=== PATIENT | female | born 1955 | race Hispanic/Latino ===

== ENCOUNTER 2018-02-24 13:03 | Emergency (ER) | payer OTHER ==
[~2018-02-24] VITALS: Ht 167.6 cm; Wt 90.7 kg
[~2018-02-24 13:03] MED LIST: KEFLEX500 MG PO; METAMUCIL PACK1 EACH PO; NORCO 7.5-3251 EACH PO; PANTOPRAZOLE SO40 MG PO
--- OUTSIDE RECORDS SUMMARY | 2018-02-24 13:06 | XMS REPORT ---
Author Author [facility] Address Unknown Phone Unavailable Care Team Providers Care [employer] Name Role Phone Brock KEARNS Unavailable Unavailable Richard RIGGS Unavailable Unavailable Problems This patient has no known problems. Allergies, Adverse Reactions, Alerts This patient has no known allergies or adverse reactions. Medications This patient has no known medications. Results Test Description Test Time Test Comments Text Results Atomic Results Result Comments CT BRAIN WO [facility] [address] [place] [address] Patient Name: MAYRA BLAKELY MR #: [id number] : 1955 Age/Sex: 61/F Req #: [id number] Adm Physician: Ordered by: MORELIA ESTEBAN Report #: [id number] Location: ER Room/Bed: Procedure: [id number] CT/CT BRAIN WO Exam Date: 02/13/17 Exam Time: 2206 REPORT STATUS: Signed History: Fall Comparison studies: None Technique: Axial images were obtained from the skull base to the vertex. Coronal and sagittal reconstructions obtained from the axial data. Findings: Scalp/skull: No abnormalities. No fractures, blastic or lytic lesions. Extra-axial spaces: No masses. No fluid collections. Brain sulci: Appropriate for age. Ventricles: Normal in size and configuration. No hydrocephalus. Parenchyma: Subtle hypodensities in the supratentorial white matter are small vessel ischemic changes. No masses, hemorrhage, acute or chronic cortical vascular insults. Sellar/suprasellar region: No abnormalities Craniocervical junction: Patent foramen magnum. No Chiari one malformation. IMPRESSION: 1. No acute abnormalities. 2. Mild supratentorial white matter small vessel ischemic changes Signed by: Dr. Hakan Barnes M.D. on 02/13/2017 10:35 PM Dictated By: HAKAN BARNES MD, MD 34 Transcribed By: JEFERSON on 02/13/172234 COPY TO: MORELIA ESTEBAN CT CERVICAL SPINE WO [place] [address] Patient Name: MAYRA BLAKELY MR #: [id number] : 1955 Age/Sex: 61/F Req #: [id number] Adm Physician: Ordered by: MORELIA ESTEBAN Report #: [id number] Location: ER Room/Bed: Procedure: [id number] CT/CT CERVICAL SPINE WO Exam Date: 02/13/17 Exam Time: 2206 REPORT STATUS: Signed History: Fall Comparison studies: None Technique: Axial images were obtained through the cervical region.. Coronal and sagittal images reconstructed from the axial data.. Intravenous contrast: None Findings: Airway: Patent. Fractures: None. Soft tissues: No gross abnormalities. Atlantoaxial articulation: Intact. Alignment: Thickening of the usual lordosis is probably positional..No scoliosis. Cervicomedullary junction: No abnormalities. The foramen magnum is patent. Vertebrae: No infection or neoplasm. Degenerative changes: Mild at the atlantoaxial articulation Focal anterior osteophyte at C5-6. Mild right foraminal stenosis due to moderate right facet arthrosis. Right facet arthrosis at C7-T1 but patent foramina. IMPRESSION: 1. No acute abnormalities. 2. Cannot adequately evaluate for ligament, spinal cord and or vascular abnormalities. 3. Degenerative changes as described Signed by: Dr. Hakan Barnes M.D. on 02/13/2017 10:37 PM Dictated By: HAKAN KOCH MD, MD 36 Transcribed By: JEFERSON on 02/13/172236 COPY TO: MORELIA ESTEBAN FOREARM RIGHT 2 VIEW [place] [address] Patient Name: MAYRA BLAKELY MR #: [id number] : 1955 Age/Sex: 61/F Req #: [id number] Adm Physician: Ordered by: LUCIUS KEARNS MD Report #: [id number] Location: ER Room/Bed: Procedure: [id number] DX/FOREARM RIGHT 2 VIEW Exam Date: 02/13/17 Exam Time: 2224 REPORT STATUS: Signed EXAM: WRIST COMPLETE RIGHT, HAND 3+ VIEWS RIGHT, FOREARM RIGHT 2 VIEW DATE: 02/13/2017 9:57 PM Time stamp on exam: 2153 hours INDICATION: Fall off ladder, right wrist pain COMPARISON: None FINDINGS: BONES: Acute, comminuted, intra-articular fracture of the distal radius. Acute nondisplaced fracture of the ulnar styloid process. There is a 6 mm ossification inferior to the triquetrum and pisiform. JOINTS: No malalignment. SOFT TISSUES: Soft tissue swelling of the wrist IMPRESSION: Acute, comminuted, mildly displaced intra-articular fracture of the distal radius. Acute nondisplaced fracture of the ulnar styloid process. There is a 6 mm ossification inferior to the triquetrum and pisiform that could represent an avulsion fracture of unknown donor site. Signed by: Dr. Jena Sotomayor M.D. on 02/13/2017 10:52 PM Dictated By: JENA SOTOMAYOR MD 51 Transcribed By: JEFERSON on 02/13/172251 COPY TO: LUCIUS KEARNS MD HAND 3+ VIEWS RIGHT [place] [address] Patient Name: MAYRA BLAKELY MR #: [id number] : 1955 Age/Sex: 61/F Req #: [id number] Adm Physician: Ordered by: LUCIUS KEARNS MD Report #: [id number] Location: ER Room/Bed: Procedure: [id number] DX/HAND 3+ VIEWS RIGHT Exam Date: 02/13/17 Exam Time: 2224 REPORT STATUS: Signed EXAM: WRIST COMPLETE RIGHT, HAND 3+ VIEWS RIGHT, FOREARM RIGHT 2 VIEW DATE: 02/13/2017 9:57 PM Time stamp on exam: 2153 hours INDICATION: Fall off ladder, right wrist pain COMPARISON: None FINDINGS: BONES: Acute, comminuted, intra-articular fracture of the distal radius. Acute nondisplaced fracture of the ulnar styloid process. There is a 6 mm ossification inferior to the triquetrum and pisiform. JOINTS: No malalignment. SOFT TISSUES: Soft tissue swelling of the wrist IMPRESSION: Acute, comminuted, mildly displaced intra-articular fracture of the distal radius. Acute nondisplaced fracture of the ulnar styloid process. There is a 6 mm ossification inferior to the triquetrum and pisiform that could represent an avulsion fracture of unknown donor site. Signed by: Dr. Jena Sotomayor M.D. on 02/13/2017 10:52 PM Dictated By: JENA SOTOMAYOR MD 51 Transcribed By: JEFERSON on 02/13/172251 COPY TO: LUCIUS KEARNS MD WRIST COMPLETE RIGHT [place] [address] Patient Name: MAYRA BLAKELY MR #: [id number] : 1955 Age/Sex: 61/F Req #: [id number] Adm Physician: Ordered by: LUCIUS KEARNS MD Report #: [id number] Location: ER Room/Bed: Procedure: [id number] DX/WRIST COMPLETE RIGHT Exam Date: 02/13/17 Exam Time: 5 REPORT STATUS: Signed EXAM: WRIST COMPLETE RIGHT, HAND 3+ VIEWS RIGHT, FOREARM RIGHT 2 VIEW DATE: 02/13/2017 9:57 PM Time stamp on exam: 2153 hours INDICATION: Fall off ladder, right wrist pain COMPARISON: None FINDINGS: BONES: Acute, comminuted, intra-articular fracture of the distal radius. Acute nondisplaced fracture of the ulnar styloid process. There is a 6 mm ossification inferior to the triquetrum and pisiform. JOINTS: No malalignment. SOFT TISSUES: Soft tissue swelling of the wrist IMPRESSION: Acute, comminuted, mildly displaced intra-articular fracture of the distal radius. Acute nondisplaced fracture of the ulnar styloid process. There is a 6 mm ossification inferior to the triquetrum and pisiform that could represent an avulsion fracture of unknown donor site. Signed by: Dr. Jena Sotomayor M.D. on 02/13/2017 10:52 PM Dictated By: JENA SOTOMAYOR MD 51 Transcribed By: JEFERSON on 02/13/172251 COPY TO: LUCIUS KEARNS MD CT ABDOMEN W [place] [address] Patient Name: MAYRA BLAKELY MR #: [id number] : 1955 Age/Sex: 61/F Req #: [id number] Adm Physician: Ordered by: ZEFERINO RIGGS MD Report #: [id number] Location: CT Room/Bed: Procedure: [id number] CT/CT ABDOMEN W Exam Date: 01/01/17 Exam Time: 1410 REPORT STATUS: Signed PROCEDURE: CT ABDOMEN W COMPARISON: [facility], CT, CT ABDOMEN/PELVIS W, 11/13/2015, 15:54. INDICATIONS: Stromal tumors TECHNIQUE: Routine protocol Volumetric CT abdomen and pelvis after administration of 100 mL Isovue 370 intravenous contrast and 900 mL oral water. Multiplanar reformatted images. DLP: 511.19 FINDINGS: Clear lung bases. No pleural effusions. Normal heart size. Liver: Normal Gallbladder: Cholecystectomy Pancreas: Normal Spleen: Normal Adrenal glands: Normal Kidneys: Normal Bowel: 2.3 x 2.2 cm broad-based appearing mass at the gastroesophageal junction (image 17, series 2 and image 55, series 301. The stomach, duodenum and imaged small large bowel are otherwise normal. Normal appendix. Peritoneum: Normal Vasculature: 1 cm calcified splenic artery aneurysm (image 21, series 2). Mild infrarenal aortic atherosclerosis. Lymph nodes: Normal Skeleton: Intact. Soft tissues: Midline incisional scar. Otherwise, normal. CONCLUSION: 1. 2.3 cm broad-based mass at the gastroesophageal junction. This is at the same location as the tumor seen on CT from October 2015. Findings are concerning for recurrent or residual tumor. Consider direct visualization. 2. 1 cm calcified splenic artery aneurysm. Based on size criteria consider followup imaging in 1 to 2 years. Dictated by: Cathleen Yee M.D. on 01/01/2017 at 14:58 Electronically approved by: Cathleen Yee M.D. on 01/01/2017 at 14:58 Dictated By: CATHLEEN YEE MD 1848 Transcribed By: PAYAL on 01/01/17 1458 COPY TO: ZEFERINO RIGGS MD
[2018-02-24] MEDS ORDERED: ASPIRIN 81 MG CHEW TAB PO ONE (13:45)
[2018-02-24 14:10] LABS: BASOPHILS # (AUTO) 0.1 (0.0-0.1); BASOPHILS % 1.1 % (0.0-1.0); EOSINOPHILS # (AUTO) 0.1 (0.0-0.4); HEMATOCRIT 39.5 % (34.2-44.1); HEMOGLOBIN 13.1 g/dL (12.0-16.0); LYMPHOCYTES # (AUTO) 1.9 (1.0-3.2); LYMPHOCYTES % 34.6 % (18.0-39.1); MEAN CORPUSCULAR HEMOGLOBIN 28.6 pg (28-32); MEAN CORPUSCULAR HGB CONC 33.2 g/dL (31-35); MEAN CORPUSCULAR VOLUME 86.2 fL (81-99); MONOCYTES # (AUTO) 0.4 (0.2-0.8); MONOCYTES % 7.3 % (4.4-11.3); NEUTROPHILS # (AUTO) 3.1 (2.1-6.9); NEUTROPHILS % 54.3 % (38.7-80.0); PLATELET COUNT 286 x10e3/uL (140-360); RED BLOOD COUNT 4.58 x10e6/uL (3.6-5.1); RED CELL DISTRIBUTION WIDTH 13.2 % (11.7-14.4)
[2018-02-24 14:28] LABS: ALANINE AMINOTRANSFERASE 12 IU/L (0-55); ALBUMIN 3.4 g/dL (3.5-5.0); ALBUMIN/GLOBULIN RATIO 0.9 (0.8-2.0); ALKALINE PHOSPHATASE 119 IU/L (40-150); BLOOD UREA NITROGEN 9 mg/dL (7-26); BUN/CREATININE RATIO 13 (6-25); CALCIUM 9.4 mg/dL (8.4-10.2); CARBON DIOXIDE 26 mmol/L (22-29); CHLORIDE 108 mmol/L (98-107); CREATINE KINASE 111 IU/L (29-168); CREATININE, SERUM 0.72 mg/dL (0.57-1.11); EST GLOMERULAR FILTRATION RATE > 60 ML/MIN (60-); GLUCOSE 91 mg/dL (74-118); SODIUM 143 mmol/L (136-145)
--- NOTE | 2018-02-24 14:32 | Diagnostic Imaging Report ---
EXAM: CHEST 2 VIEWS, PA and lateral DATE: 02/24/2018 1:35 PM Time stamp on exam: 2:11 PM INDICATION: Chest pain COMPARISON: None FINDINGS: LINES/TUBES: None LUNGS: No consolidations or edema. PLEURA: No effusions or pneumothorax. HEART AND MEDIASTINUM: Heart is enlarged. BONES AND SOFT TISSUES: Degenerative spurring of the spine. IMPRESSION: Cardiomegaly without evidence of decompensation. Signed by: Dr. Fernando Fonseca DO on 02/24/2018 2:29 PM
[2018-02-24 15:48] LABS: CREATINE KINASE 111 IU/L (29-168)
[2018-02-24 16:22] VITALS: BP 145/69
== END 2018-02-24 16:35 | disposition home or self-care (01) ==
LOC: ER 13:03
DX: R07.89 Other chest pain (principal)
CPT/HCPCS: 36415; 71046; 80053; 82550; 82553; 84484; 85025; 93005; 99283

== ENCOUNTER 2021-07-01 12:30 | Emergency (ER) | payer MEDICARE, OTHER ==
[~2021-07-01] VITALS: Ht 167.6 cm; Wt 90.7 kg
[2021-07-01] MEDS ORDERED: ONDANSETRON HCL 4 MG ORAL DISINTEGRATING TAB PO ONE (13:30)
[2021-07-01] MEDS ORDERED: TRAMADOL HCL 50 MG TAB PO ONE (13:30)
[2021-07-01] MEDS ORDERED: ULTRAM 50MG50 MG PO (15:48)
[2021-07-01 16:15] VITALS: BP 135/77
== END 2021-07-01 16:51 | disposition home or self-care (01) ==
LOC: ER 12:35
DX: M25.562 Pain in left knee (principal); M25.462 Effusion, left knee; K21.9 Gastro-esophageal reflux disease without esophagitis
CPT/HCPCS: 93971; 99284

== ENCOUNTER → 2021-07-26 | Outpatient (CLI) | payer MEDICARE ==
[~2021-07-26] MED LIST changes: +ULTRAM 50MG50 MG PO
== END ==
LOC: MRI 08:42
PROVIDERS: ATTEND Specialist
DX: S83.222A Peripheral tear of medial meniscus, current injury, left knee, initial encounter (principal)

== ENCOUNTER → 2021-08-20 | Outpatient (RCR) | payer OTHER | LOC: PT 08-15 14:12 | PROVIDERS: ATTEND Specialist | DX: M17.12 Unilateral primary osteoarthritis, left knee (principal); S83.222D Peripheral tear of medial meniscus, current injury, left knee, subsequent encounter; M62.81 Muscle weakness (generalized); M25.562 Pain in left knee; M25.662 Stiffness of left knee, not elsewhere classified; R26.2 Difficulty in walking, not elsewhere classified ==

== ENCOUNTER 2021-08-21 11:20 | Outpatient (RCR) | payer OTHER | END 2021-09-19 | LOC: PT 11:20 | PROVIDERS: ATTEND Specialist | DX: M17.12 Unilateral primary osteoarthritis, left knee (principal); S83.222D Peripheral tear of medial meniscus, current injury, left knee, subsequent encounter; M62.81 Muscle weakness (generalized); M25.562 Pain in left knee; M25.662 Stiffness of left knee, not elsewhere classified; R26.2 Difficulty in walking, not elsewhere classified | CPT/HCPCS: 97139 ==

== ENCOUNTER 2021-09-18 11:00 | Outpatient (RCR) | payer OTHER | END 2021-09-19 | LOC: PT 11:00 | PROVIDERS: ATTEND Specialist | DX: M17.12 Unilateral primary osteoarthritis, left knee (principal) ==

== ENCOUNTER 2021-09-30 11:00 | Outpatient (RCR) | payer OTHER | END 2021-10-20 | LOC: PT 11:00 | PROVIDERS: ATTEND Specialist | DX: M17.12 Unilateral primary osteoarthritis, left knee (principal) | CPT/HCPCS: 97139 ==

== ENCOUNTER 2022-02-10 13:39 | Observation (INO) | payer MEDICARE ==
[~2022-02-10] VITALS: Ht 167.6 cm; Wt 90.7 kg
[2022-02-10] MEDS ORDERED: TETANUS/DIPHTHERIA TOX ADULT 0.5 ML SYR IM ONE (14:30)
[2022-02-10 14:32] LABS: BASOPHILS # (AUTO) 0.1 (0.0-0.1); EOSINOPHILS # (AUTO) 0.1 (0.0-0.4); EOSINOPHILS % 1.7 % (0.0-6.0); HEMATOCRIT 43.1 % (34.2-44.1); HEMOGLOBIN 13.5 g/dL (12.0-16.0); LYMPHOCYTES # (AUTO) 2.2 (1.0-3.2); LYMPHOCYTES % 30.1 % (18.0-39.1); MEAN CORPUSCULAR HEMOGLOBIN 28.5 pg (28-32); MEAN CORPUSCULAR HGB CONC 31.3 g/dL (31-35); MEAN CORPUSCULAR VOLUME 91.1 fL (81-99); MONOCYTES # (AUTO) 0.6 (0.2-0.8); MONOCYTES % 8.4 % (4.4-11.3); NEUTROPHILS # (AUTO) 4.2 (2.1-6.9); NEUTROPHILS % 58.2 % (38.7-80.0); PLATELET COUNT 238 x10e3/uL (140-360); RED BLOOD COUNT 4.73 x10e6/uL (3.6-5.1); RED CELL DISTRIBUTION WIDTH 13.1 % (11.7-14.4)
[2022-02-10 14:40] LABS: CLARITY,URINE CLEAR (CLEAR); COLOR,URINE YELLOW (YELLOW); KETONES,URINE NEGATIVE (NEGATIVE); LEUKOCYTE ESTERASE ,URINE NEGATIVE (NEGATIVE); NITRITE,URINE NEGATIVE (NEGATIVE); PROTEIN,URINE DIPSTICK NEGATIVE (NEGATIVE); URINE UROBILINOGEN 0.2 mg/dL (0.2 - 1)
[2022-02-10 14:44] LABS: INR 0.87; PROTHROMBIN TIME 12.6 seconds (11.9-14.5)
[2022-02-10 14:49] LABS: BACTERIA,URINE FEW /HPF; EPITHELIAL CELLS,URINE MODERATE /LPF; RBC,URINE 0-5 /HPF (0-5)
[2022-02-10 14:54] LABS: ALBUMIN 3.9 g/dL (3.5-5.0); ALBUMIN/GLOBULIN RATIO 1.2 (0.8-2.0); ANION GAP 13.7 mmol/L (8-16); CALCIUM 8.8 mg/dL (8.4-10.2); CREATININE, SERUM 0.69 mg/dL (0.57-1.11); MAGNESIUM 1.8 MG/DL (1.3-2.1); POTASSIUM 3.7 mmol/L (3.5-5.1)
[2022-02-10 15:00] LABS: CREATINE KINASE MB 1.4 ng/mL (0-5.0)
[2022-02-10] MEDS ORDERED: ONDANSETRON HCL INJ 2MG/ML 2ML 2 MG/ML VIAL IV PRN (16:00)
[2022-02-10] MEDS ORDERED: HYDROCODONE/APAP 7.5MG-325MG 1 EA TAB PO ONE (16:34)
[2022-02-10 20:00] VITALS: BP 129/68
[2022-02-10 20:50] LABS: CREATINE KINASE MB 1.1 ng/mL (0-5.0)
[2022-02-10] MEDS: HYDROCODONE/APAP 5MG-325MG TAB PO PRN (21:50)
[2022-02-10 22:24] VITALS: BP 129/68
[2022-02-10 23:30] VITALS: BP 129/68
[2022-02-11] VITALS (7 sets, daily range): BP systolic 111–136; BP diastolic 56–69
[2022-02-11] MEDS: HYDROCODONE/APAP 5MG-325MG TAB PO PRN ×2 (04:08→11:16)
[2022-02-11] MEDS ORDERED: CHOLESTYRAMINE P4 GM PO (04:12)
[2022-02-11] MEDS ORDERED: HYDROCHLOROTH12.5 MG PO (04:12)
[2022-02-11] MEDS ORDERED: d3 PO (04:13)
[2022-02-11 05:05] LABS: BASOPHILS # (AUTO) 0.1 (0.0-0.1); BASOPHILS % 1.3 % (0.0-1.0); EOSINOPHILS # (AUTO) 0.2 (0.0-0.4); EOSINOPHILS % 2.5 % (0.0-6.0); HEMATOCRIT 36.4 % (34.2-44.1); HEMOGLOBIN 11.9 g/dL (12.0-16.0); LYMPHOCYTES # (AUTO) 2.1 (1.0-3.2); LYMPHOCYTES % 32.6 % (18.0-39.1); MEAN CORPUSCULAR HEMOGLOBIN 28.9 pg (28-32); MEAN CORPUSCULAR HGB CONC 32.7 g/dL (31-35); MEAN CORPUSCULAR VOLUME 88.3 fL (81-99); MONOCYTES # (AUTO) 0.6 (0.2-0.8); MONOCYTES % 10.1 % (4.4-11.3); NEUTROPHILS # (AUTO) 3.4 (2.1-6.9); NEUTROPHILS % 53.2 % (38.7-80.0); PLATELET COUNT 170 x10e3/uL (140-360); RED BLOOD COUNT 4.12 x10e6/uL (3.6-5.1); RED CELL DISTRIBUTION WIDTH 13.5 % (11.7-14.4)
[2022-02-11 05:34] LABS: ALBUMIN 3.3 g/dL (3.5-5.0); ALBUMIN/GLOBULIN RATIO 1.4 (0.8-2.0); ANION GAP 12.8 mmol/L (8-16); CALCIUM 8.2 mg/dL (8.4-10.2); CREATININE, SERUM 0.71 mg/dL (0.57-1.11); POTASSIUM 3.8 mmol/L (3.5-5.1)
[2022-02-11 06:00] LABS: CREATINE KINASE MB 0.8 ng/mL (0-5.0)
[2022-02-11] MEDS ORDERED: vitamin d3 PO (06:13)
[2022-02-11 06:33] LABS: FREE T4 (FREE THYROXINE) 1.1 ng/dL (0.8-1.8); THYROID STIMULATING HORMONE 1.671 uIU/mL (0.350-4.940)
[2022-02-11] MEDS ORDERED: BACITRACIN ZINC 15 GM OINT TOP SCH (13:00)
[2022-02-11] MEDS ORDERED: ONDANSETRON HCL 4 MG ORAL DISINTEGRATING TAB PO PRN (14:00)
[2022-02-11] MEDS ORDERED: PENCILLIN V PO250 MG PO (19:28)
[2022-02-11] MEDS ORDERED: BACITRACIN15 GM TOP (19:59)
[2022-02-12] MEDS ORDERED: HYDROCHLOROTHIAZIDE 25 MG TAB PO SCH (09:00)
== END 2022-02-11 14:18 | disposition home or self-care (01) ==
LOC: ER 13:58 → ERHOLD 15:55 → MED/SURG 20:05
PROVIDERS: ADMIT Internal Medicine; ATTEND Internal Medicine
DX: N39.0 Urinary tract infection, site not specified (principal); R55 Syncope and collapse; R42 Dizziness and giddiness; B95.1 Streptococcus, group B, as the cause of diseases classified elsewhere; S01.81XA Laceration without foreign body of other part of head, initial encounter; S81.011A Laceration without foreign body, right knee, initial encounter; S80.12XA Contusion of left lower leg, initial encounter; W01.0XXA Fall on same level from slipping, tripping and stumbling without subsequent striking against object, initial encounter; Z23 Encounter for immunization
CPT/HCPCS: 0223U; 12011; 36415 ×2; 70450; 70486; 70544; 70547; 70551; 71045; 72125; 73562; 73590; 80053 ×2; 80061; 81001; 82550 ×2; 82553 ×2; 83735; 83880; 84439; 84443; 84484 ×2; 85025 ×2; 85610; 85730; 87086; 90471; 90714; 93005; 99251; 99284; G0378 ×2; J2405

== ENCOUNTER 2023-10-06 11:13 | Emergency (ER) | payer MEDICARE ==
[~2023-10-06] VITALS: Ht 149.9 cm; Wt 108.9 kg
[~2023-10-06 11:13] MED LIST changes: +BACITRACIN15 GM TOP; +CEPHALEXIN500 MG PO; +CHOLESTYRAMINE P4 GM PO; +HYDROCHLOROTH12.5 MG PO; +NAPROSYN500 MG PO; +PENCILLIN V PO250 MG PO; +d3 PO; +vitamin d3 PO
[2023-10-06 11:55] VITALS: PULSE 67; RESP 18; TEMP 97
[2023-10-06] MEDS: IBUPROFEN 600 MG TAB PO STA (13:17)
[2023-10-06 14:45] VITALS: BP 166/66; PULSE 52; RESP 16; O2SAT 100
== END 2023-10-06 14:45 | disposition home or self-care (01) ==
LOC: ER 12:06
DX: M25.562 Pain in left knee (principal); K21.9 Gastro-esophageal reflux disease without esophagitis; M19.09 Primary osteoarthritis, other specified site
CPT/HCPCS: 99283